=== PATIENT | female | born 1980 | race Caucasian/White ===

== ENCOUNTER 2017-08-20 04:57 | Inpatient (IN) | payer OTHER ==
[~2017-08-20] VITALS: Ht 154.9 cm; Wt 104.3 kg
[2017-08-20] MEDS ORDERED: OXYTOCIN 30 UNIT/NS 500 ML 500 ML IV PRN (04:59)
[2017-08-20] MEDS ORDERED: FAMOTIDINE(*) 20MG/50ML PREMIX 50 ML IVPB PRN (04:59)
[2017-08-20] MEDS ORDERED: ceFAZolin(*) 2GM/D5W 50ML 50 ML IVPB PRN (04:59)
[2017-08-20] MEDS ORDERED: fentaNYL CITR 100 MCG/2 ML AMP IVP PRN (05:00)
[2017-08-20] MEDS ORDERED: METOCLOPRAMIDE 10 MG/2 ML SDV IVP PRN (05:00)
[2017-08-20] MEDS ORDERED: LIDOCAINE 1% LOCAL 300 MG/30ML INJ PRN ×2 (05:00)
[2017-08-20] MEDS ORDERED: MISOPROSTOL 25 MCG CAP PV PRN (05:00)
[2017-08-20] MEDS ORDERED: LIDOCAINE/SOD BICARB 8.4% SYR SC PRN (05:00)
[2017-08-20] MEDS ORDERED: ACETAMINOPHEN 500 MG TAB PO PRN (05:00)
[2017-08-20] MEDS ORDERED: TERBUTALINE SULF 1 MG/ML VIAL SUBQ PRN (05:00)
[2017-08-20 05:40] VITALS: BP 168/87; Ht 154.9 cm; Wt 104.3 kg
[2017-08-20] MEDS ORDERED: PREN-127 PO (06:18)
[2017-08-20] MEDS ORDERED: HYDR200T38 PO (06:18)
[2017-08-20] MEDS ORDERED: PRED-420 PO (06:18)
[2017-08-20] MEDS ORDERED: LABETALOL HCL 20 MG/4 ML SYR IVP PRN (06:30)
[2017-08-20 06:37] LABS: PLATELET COUNT, AUTOMATED 154 K/uL (150-450)
[2017-08-20] MEDS ORDERED: LABETALOL HCL 100 MG/20ML VIAL IVP PRN (06:55)
[2017-08-20] MEDS: LR(*) 1000 ML BAG 1,000 ML IV SCH ×2 (07:04→16:53)
[2017-08-20] MEDS ORDERED: CLINDAMYCIN 900 MG/6 ML 900 MG in NS(*) 0.9% 100 ML BAG 100 ML IVPB ONE (07:20)
[2017-08-20] MEDS ORDERED: ACETAMINOPHEN(*)1000 MG/100 ML 100 ML IVPB SCH (08:00)
[2017-08-20] MEDS ORDERED: MAGNESIUM SUL* 4 GM/100 ML BAG 100 ML IVPB ONE (08:15)
[2017-08-20] MEDS ORDERED: predniSONE 10 MG TAB PO SCH (09:00)
--- NOTE | 2017-08-20 09:02 | History & Physical ---
History of Present Illness Age of Patient: 37 : 2 Para or TPAL: 1001 EDC per LMP: Aug 23, 2017 EDC per U/S: Aug 25, 2017 Estimated Gestational Age: 39.4 Chief Complaint Induction of labor History of Present Illness Pt is a 37 y/o @ 39-4/7 who presents to L&D with a chief complaint of Induction of Labor. Pt reports no headaches or visual changes. Good movement. No bleeding or spotting. Pt reports that she has Rheumatoid Arthritis and take Prednisone 10 mg daily along with Plaquenil. Pt reports that she still has significant joint issues and difficulty moving. 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 Past Medical History: Rheumatoid Arthritis: Prednisone and Plaquenil daily. Allergies: Coded Allergies: Penicillins (Verified Allergy, Severe, ANAPHYLAXIS, 08/20/17) Sulfa (Sulfonamide Antibiotics) (Verified Allergy, Severe, ANAPHYLAXIS, 07/26) aspirin (Verified Allergy, Unknown, UNKNOWN, 08/20/17) Social History: denies X 3. . Med Rec Home Meds Reported Medications Vits W-Ca,Fe,Fa(<1MG) ( VITAMINS) 1 Each Tablet, 1 EACH PO DAILY, TAB 08/20/17 Hydroxychloroquine Sulfate (PLAQUENIL) 200 Mg Tablet, 200 MG PO QDAY 08/20/17 Prednisone 10 Mg Tab (PREDNISONE 10 MG TAB) 10 Mg Tab.ds.pk, 10 MG PO, TAB 08/20/17 Review of Systems All Systems Reviewed/Normal: Yes, Except as Noted Constitutional: No Fever, No Weight Loss, No Weight Gain, No Chills, No Night Sweats, No Other Neurological: No Syncope, No Confusion, No Weakness, No Dizziness, No Slurred Speech, No Other Eyes: No Vision Change, No Loss of Vision, No Photophobia, No Other ENT: No Hearing Loss, No Sinus Congestion, No Sore Throat, No Ear Ache, No Tinnitus, No Other Cardiovascular: No Chest Pain, No Palpitations, No Orthostatic Hypotension, No Other Respiratory: No Shortness of Breath, No Cough, No Wheezing, No Other Gastrointestinal: No Nausea, No Vomiting, No Diarrhea, No Dysphagia, No Constipation, No Early Satiety, No Hematemesis, No Hematochezia, No Melena, No Abdominal Pain, No Other Genitourinary: No Dysuria, No Hematuria, No Urinary Incontinence, No Other Musculoskeletal: No Pain, No Sprain, No Strain, No Impaired Mobility, No Other Psychiatric: No Depression, No Anxiety, No Other Exam General Exam Vital Signs Vital Signs Date Time Temp Pulse Resp B/P (MAP) Pulse Ox O2 Delivery O2 Flow Rate FiO2 08/20/17 05:40 98.1 87 20 168/87 (114) 94 Room Air General Apperance: Alert/Awake/No Acute Distress Neuro: No Gross deficits Eyes: Normal Extraocular Movement & Vison, PERRLA ENT: Normal Neck: No Masses Cardiovascular: Regular Rate and Rhythm Respiratory: No Respiratory Distress, Clear to Auscultation Abdomen: Soft, Non-Tender, Non-Distended, Gravid - Non-Tender : Normal Musculoskeletal: No Weakness/Pain Extremities: No Cyanosis,Clubbing or Edema, Other (pain in the joints) Integumentary: Skin Intact without Lesions or Rash Psychological: Alert & Oriented X3, Appropriate Mood & Affect Cervical Dialation: 1 Cervical Effacement (%): 50 Cervical Consistency: Moderate Cervical Position: Anterior Station: -2 Presentation: Vertex Uterine Contractions(Q min): 15 Uterine Contraction Strength: Moderate UC Resting Tone: Soft Fetus Feeling Movement?: Yes Estimated Weight(grams): 3400 Heart Tones: 130 Heart Tone Variabilty: Moderate FHT Accelerations: 15X15 FHT Decelerations: None FHT Category: I Medical Decision Making Data Points Result Diagram: 08/20/17 0624 08/20/17 0000 Pre-Admit Course Medical Record Review: Yes VTE Prophylasis: Adult Deep Vein Thrombosis/Pulmonary: No Assessment and Plan 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 labetalol as needed to help with BP to keep it under 160/110. Start with Cytotec for IOL. (2) 39 weeks gestation of (3) Rheumatoid arthritis Assessment & Plan: Keep on Prednisone 10 mg daily. Will get Stress dose steroids as needed with labor. (4) Obesity (BMI 35.0-39.9 without comorbidity) (5) Advanced maternal age (AMA) in Problem Qualifiers (1) Preeclampsia, severe: Trimester: third trimester Qualified Codes: O14.13 - Severe pre-eclampsia, third trimester GISELA VICTORIA DO Aug 20, 2017 09:02
[2017-08-20] MEDS ORDERED: OXYTOCIN 30 UNIT/D5LR 500 ML 500 ML IV PRN ×2 (09:05→13:37)
[2017-08-20] MEDS: MAGNESIUM SULF 20 GM/500 ML IV 500 ML IV SCH ×2 (09:34→19:04)
[2017-08-20 13:59] LABS: PLATELET COUNT, AUTOMATED 160 K/uL (150-450)
[2017-08-20] MEDS ORDERED: CALCIUM GLUC 10% 100 MG/ML VL IVP ONE ×2 (14:50→15:15)
[2017-08-20] MEDS ORDERED: CALCIUM GLUC 10% 100 MG/ML VL ONE (14:53)
[2017-08-20] MEDS ORDERED: CALCIUM GLUC 10% 100 MG/ML VL IVP PRN (15:55)
[2017-08-20] MEDS ORDERED: EPIDURAL KEYS XX PRN (16:35)
[2017-08-20] MEDS ORDERED: LIDO/EPI 2% MPF 1:200,000 20ML EPI PRN (16:40)
[2017-08-20] MEDS ORDERED: FENTANYL/ROPIVACAINE 100 ML BAG EPI PRN (16:40)
[2017-08-20] MEDS ORDERED: ePHEDrine 25 MG/5 ML DISP.SYR IVP PRN (16:40)
[2017-08-20] MEDS ORDERED: BUPIVACAINE 0.5% INJ 30ML VIAL EPI PRN (16:40)
[2017-08-20] MEDS ORDERED: BUPIVACAINE 0.25% MPF INJ EPI PRN (16:40)
[2017-08-20] MEDS ORDERED: fentaNYL CITR 100 MCG/2 ML AMP IT PRN (16:40)
[2017-08-20] MEDS ORDERED: LIDOCAINE/PF 2% 200MG/10ML AMP 200 MG/10 ML AMPUL EPI PRN (16:40)
--- NOTE | 2017-08-20 16:49 | Labor Progress Note ---
Labor Subjective Progress Notes Subjective Feeling warm. Hungry. Getting more and more uncomfortable. Pt desires epidural for pain control. No shortness of breath or chest pain. Feeling Movement?: Yes Vaginal Discharge/Fluid: No Bloody Show, No Clear Fluid, No Bloody Fluid, No Green Tinged Fluid, No Dark Green Fluid, No Mucous, No Small Amount, No Moderate Amount, No Large Amount, No Other Labor Pain: Moderate Neurological: No Headache, No Other Eyes: No Visual Disturbances Labor Objective Vital Signs Vital Signs Date Time Temp Pulse Resp B/P (MAP) Pulse Ox O2 Delivery O2 Flow Rate FiO2 08/20/17 05:40 98.1 87 20 168/87 (114) 94 Room Air Cervical Dialation: 2 Cervical Effacement (%): 50 Cervical Consistency: Moderate Cervical Position: Posterior Station: -2 Presentation: Vertex Uterine Contractions(Q min): 2 Uterine Contraction Strength: Moderate UC Resting Tone: Soft Fetus Heart Tones: 135 Heart Tone Variabilty: Moderate FHT Accelerations: Present FHT Decelerations: None FHT Category: I Other Result Diagram: 08/20/17 1345 08/20/17 1345 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 Continue Magnesium Sulfate. Pt has only been treated with labetalol 20 mg IV once. (2) 39 weeks gestation of Assessment & Plan: S/P cytotec 25 mcg PV. Currently on oxytocin 10 mU/min. Desires epidural. Will plan for amniotomy after epidural. (3) Rheumatoid arthritis (4) Obesity (BMI 35.0-39.9 without comorbidity) (5) Advanced maternal age (AMA) in Problem Qualifiers (1) Preeclampsia, severe: Trimester: third trimester Qualified Codes: O14.13 - Severe pre-eclampsia, third trimester ESMECORINEDannielle MARQUEZ Aug 20, 2017 16:49
[2017-08-20] MEDS: ONDANSETRON 4 MG/2 ML VIAL IVP PRN (18:33)
--- NOTE | 2017-08-20 18:45 | Labor Progress Note ---
Labor Subjective Progress Notes Subjective Feeling better post epidural. Significant nausea with vomiting. Pain controlled. Feeling Movement?: Yes Vaginal Discharge/Fluid: Bloody Show, Clear Fluid Labor Pain: Mild Neurological: No Headache, No Other Eyes: No Visual Disturbances Labor Objective Vital Signs Vital Signs Date Time Temp Pulse Resp B/P (MAP) Pulse Ox O2 Delivery O2 Flow Rate FiO2 08/20/17 05:40 98.1 87 20 168/87 (114) 94 Room Air Cervical Dialation: 2 Cervical Effacement (%): 50 Cervical Consistency: Moderate Cervical Position: Mid Station: -2 Presentation: Vertex Uterine Contractions(Q min): 3 Uterine Contraction Strength: Moderate UC Resting Tone: Soft Fetus Heart Tones: 130 Heart Tone Variabilty: Moderate FHT Accelerations: 15X15 FHT Decelerations: Variable FHT Category: II Other Result Diagram: 08/20/17 1345 08/20/17 1345 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 IUPC placed. Will increase oxytocin to adequate contraction pattern. (3) Rheumatoid arthritis (4) Obesity (BMI 35.0-39.9 without comorbidity) (5) Advanced maternal age (AMA) in Problem Qualifiers (1) Preeclampsia, severe: Trimester: third trimester Qualified Codes: O14.13 - Severe pre-eclampsia, third trimester GISELA VICTORIA DO Aug 20, 2017 18:45
--- NOTE | 2017-08-20 19:41 | Anesthesia OB Pre-Anes Eval ---
History of Present Illness Anesthesia Start Date: Aug 20, 2017 Anesthesia Start Time: 17:15 OB Anesthesia Diagnosis: induction - medical, other (Hypertension) Current Complication: obesity Complications: None known EDC: Aug 25, 2017 : 2 Para: 1 Vital Signs: Vital Signs Date Time Temp Pulse Resp B/P (MAP) Pulse Ox O2 Delivery O2 Flow Rate FiO2 08/20/17 05:40 98.1 87 20 168/87 (114) 94 Room Air Pain Ratin Heart Tones: WNL Result Diagram: 08/20/17 1345 08/20/17 1345 Height (Inches): 61.00 Weight (Pounds): 230 BMI Calculated: 43.45 Past Medical History Medical History: obesity, other (Daily Prednisone for RA) Surgical History: other (Foot) Previous Anesthesia: general, epidural Attended Childbirth Classes?: No Hx Anesthesia Reactions: No Hx Family Anesthesia Reaction: No Current Medications: magnesium sulfate, pitocin Home Meds Reported Medications Vits W-Ca,Fe,Fa(<1MG) ( VITAMINS) 1 Each Tablet, 1 EACH PO DAILY, TAB 08/20/17 Hydroxychloroquine Sulfate (PLAQUENIL) 200 Mg Tablet, 200 MG PO QDAY 08/20/17 Prednisone 10 Mg Tab (PREDNISONE 10 MG TAB) 10 Mg Tab.ds.pk, 10 MG PO, TAB 08/20/17 Allergies: Coded Allergies: Penicillins (Verified Allergy, Severe, ANAPHYLAXIS, 08/20/17) Sulfa (Sulfonamide Antibiotics) (Verified Allergy, Severe, ANAPHYLAXIS, 07/26) aspirin (Verified Allergy, Unknown, UNKNOWN, 08/20/17) Anesthesia OB ROS Neurological: No migraines/headaches, No seizures, No neuropathy ENT: Denies Tooth caps, Denies Loose teeth, Denies Chipped teeth, Denies Dentures, Denies Bridges, Denies Retainers, Denies Veneers, Denies Implants, Denies Tongue ring Pulmonary: No asthma, No smoker (pks/day/yrs), other (audible respirations) Airway Class: lll Cardiovascular ROS: edema (ankles and hands), No arrhythmia, No other GI ROS: clear liquids Last Solids Date: Aug 20, 2017 Last Solids Time: 09:00 ROS: No Herpes, No STD(s), No Liver Disease, No Renal Disease Endocrine ROS: No diabetes, No gestational diabetes, No thyroid disorder, other (R. Arthritis) Musculoskeletal ROS: No low back pain, No low back injury, No scoliosis ASA Classification: 3 Assessment and Plan Anesthesia Plan: CSE Assessment Past Medical, Surgical, Family and Obstetric Histories reviewed. Please see ACOG chart. Reviewed with pt. her previous epidural experience. Pt. remember very little. Epidural anesthesia risks, complications and benefits explained to patient's satisfaction for labor and vaginal delivery and/or section. Also, discussed General anesthesia risks and benefits explained to patient's satisfaction. brought food into room, offered grapes to pt. Repeated need for only clear liquids, "solid food can be fatal if aspirated during C/Section". Questions invited, none asked. TREVOR IBRCH CRNA Aug 20, 2017 19:41
--- NOTE | 2017-08-20 19:46 | Procedure Note ---
Anesthetic Placement Note Anesthesia Plan: CSE Permit for Anesthesia Signed: Yes Anesthesia Technique: Patient Sitting Anesthesia Prep: Chlorhexidine Interspace: L 3-4 Local Anesthetic: 1% Lidocaine, 25 Gauge Needle Amount Local - cc's: 2 Anesthesia Needle: 17g Touhy/Schliff Anesthesia Attempts: 1 Loss of Resistance: Air Depth of LOS (cm): 8 Epidural Needle Placement: No CSF, No Blood, No Parasthesia Intrathecal Needle: 27 Gauge Pencan Cerebral Spinal Fluid: Yes, Clear Catheter Insertion (cm): 10 Catheter Type: Curtis - Spring Wound Epidural Dressing: Tegaderm, Tape, Adhesive [place] Anesthesia Tray: Lot Number ([id number]), Expiration Date (2018-05-08), Reference Number ([id number]) Comment: Unable to feel any landmarks, even iliac crests. Asked pt. to locate and she also was unable. Anesthesia Medications: Intrathecal Dose: mcg Fentanyl (15), mg Marcaine MPF (1.75), Time (1737) Epidural Test Dose: 1.5 Lido/Epi (1:200,000), Time (1800), Negative Epidural Loading Dose: 0.2% Ropivicaine, With Fentanyl 2mcg/ml, Dose - ml (5), Time (1802) Epidural Infusion: 0.2% Ropivicaine, With Fentanyl 2mcg/ml, Start Time: (1802) Epidural Pump Setting: Bolus Dose - mL (5), Lockout - Minutes (20), Maintenance Rate - mL/hr (4), Maximum per Hour - mL (19) Complications: None Comment: Pt. tolerated procedure extremely well. No contractions noted while sitting. Vital signs stable. Patient comfortable and condition stable. TREVOR BIRCH CRNA Aug 20, 2017 19:46
--- NOTE | 2017-08-20 19:52 | Anesthesia Progress Note ---
Progress/Maintenance Anesthesia Note Date: Aug 20, 2017 Anesthesia Note Time: 18:00 Pain Intensity: 0 Pump: On Pump Rate (ML/HR): 4 Sensory Level: T-12 Motor Level: Bending Knees-Bilateral Dilatation: 2 Position: Left, Tilt Assessment and Plan Assessment Pt. with nausea and emesis of large amount solid food. Bp slightly lower, depends of which arm bp cuff is on. Pt. denies any feeling of lightheadedness or dizziness. TREVOR BIRCH CRNA Aug 20, 2017 19:52
[2017-08-20 22:16] LABS: PLATELET COUNT, AUTOMATED 141 K/uL (150-450)
--- NOTE | 2017-08-20 22:29 | Anesthesia Progress Note ---
Progress/Maintenance Anesthesia Note Date: Aug 20, 2017 Anesthesia Note Time: 22:15 Pain Intensity: 0 Pump: On Pump Rate (ML/HR): 4 Sensory Level: T-12 Motor Level: Bending Knees-Bilateral Dilatation: 3 Position: Left, Tilt Assessment and Plan Assessment Assisted pt. to turn onto left side. Pt. was able to help with moving. She does not notice contractions. TREVOR BIRCH CRNA Aug 20, 2017 22:29
[2017-08-21] VITALS (19 sets, daily range): BP systolic 109–163; BP diastolic 54–97
--- NOTE | 2017-08-21 02:15 | Anesthesia Progress Note ---
Progress/Maintenance Anesthesia Note Date: Aug 21, 2017 Anesthesia Note Time: 02:10 Pain Intensity: 7 Pump: On Pump Rate (ML/HR): 4 Sensory Level: T-12 Motor Level: Bending Knees-Bilateral Dilatation: 3 Position: Left, Tilt Drug Bolus: 0.2% Ropivicaine, Fentanyl 2mcg/ml, Other (Fentenyl 50 mcgs) Assessment and Plan Assessment Bolus given as pt. states she feels contractions in "front lower abdomen". Able to move legs well. Pitocin gtt increasing and pt. noticing stronger contractions. TREVOR BIRCH CRNA Aug 21, 2017 02:15
[2017-08-21] MEDS: MAGNESIUM SULF 20 GM/500 ML IV 500 ML IV SCH ×2 (05:10→14:58)
--- NOTE | 2017-08-21 05:21 | Anesthesia Progress Note ---
Progress/Maintenance Anesthesia Note Date: Aug 21, 2017 Anesthesia Note Time: 05:15 Pain Intensity: 7 Pump: On Pump Rate (ML/HR): 6 Sensory Level: T-12 Motor Level: Bending Knees-Bilateral Dilatation: 4 Position: Left, Tilt Drug Bolus: 0.5% Marcaine (3 m;) Assessment and Plan Assessment Bolus per pump plus additional 0.5% Marcaine. Rate of pump increased to 6 ml/ hr. Pt. has received relief from previous bolus, but eventually, discomfort returns. TREVOR BIRCH CRNA Aug 21, 2017 05:21
[2017-08-21 06:43] LABS: PLATELET COUNT, AUTOMATED 135 K/uL (150-450)
[2017-08-21] MEDS ORDERED: ACETAMINOPHEN(*)1000 MG/100 ML 100 ML IVPB ONE (08:00)
[2017-08-21] MEDS: ONDANSETRON 4 MG/2 ML VIAL IVP PRN (08:28)
[2017-08-21] MEDS ORDERED: MORPHINE PF 5 MG/10 ML AMP ONE (08:35)
--- NOTE | 2017-08-21 08:46 | Labor Progress Note ---
Labor Subjective Progress Notes Subjective Pain getting worse. Pt report she is getting tired and doesn't want to keep going. Frustrated with how long this is taking. Feeling Movement?: Yes Vaginal Discharge/Fluid: Bloody Show, Clear Fluid Labor Pain: Moderate Neurological: No Headache, No Other Eyes: No Visual Disturbances Labor Objective Vital Signs Vital Signs Date Time Temp Pulse Resp B/P (MAP) Pulse Ox O2 Delivery O2 Flow Rate FiO2 08/20/17 05:40 98.1 87 20 168/87 (114) 94 Room Air Vaginal Discharge/Fluid?: Bloody Show Cervical Dialation: 4 Cervical Effacement (%): 70 Cervical Consistency: Soft Cervical Position: Mid Station: -3 Presentation: Vertex Uterine Contractions(Q min): 5 Uterine Contraction Strength: Moderate UC Resting Tone: Soft Fetus Heart Tones: 130 Heart Tone Variabilty: Moderate FHT Accelerations: 15X15 FHT Decelerations: None Other Result Diagram: 08/21/1762208/21/17622 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 Consents signed. Pt to go to OR. Will plan for 24 hours magnesium recovery. 100 mg Hydrocortisone or Solumedrol for stress dose at surgery. (2) 39 weeks gestation of (3) Rheumatoid arthritis (4) Obesity (BMI 35.0-39.9 without comorbidity) (5) Advanced maternal age (AMA) in Problem Qualifiers (1) Preeclampsia, severe: Trimester: third trimester Qualified Codes: O14.13 - Severe pre-eclampsia, third trimester GISELA VICTORIA DO Aug 21, 2017 08:45
[2017-08-21] MEDS: LR(*) 1000 ML BAG 1,000 ML IV SCH (08:50)
[2017-08-21] MEDS ORDERED: CITRIC ACID/SOD CITRATE 30 ML ONE (09:12)
--- NOTE | 2017-08-21 09:25 | Anesthesia OB Pre-Anes Eval ---
History of Present Illness OB Anesthesia Diagnosis: gestational hypertension, induction - medical Current Complication: gestational hypertention, obesity EDC: Aug 25, 2017 : 2 Para: 1 Pain Ratin Result Diagram: 08/20/17 0624 08/20/17 0000 Height (Inches): 61.00 Weight (Pounds): 230 BMI Calculated: 43.45 Past Medical History Medical History: obesity, other (Rheumatoid Arthritis) Surgical History: noncontributory Previous Anesthesia: general Attended Childbirth Classes?: No Hx Anesthesia Reactions: No Hx Family Anesthesia Reaction: No Current Medications: magnesium sulfate Home Meds Reported Medications Vits W-Ca,Fe,Fa(<1MG) ( VITAMINS) 1 Each Tablet, 1 EACH PO DAILY, TAB 08/20/17 Hydroxychloroquine Sulfate (PLAQUENIL) 200 Mg Tablet, 200 MG PO QDAY 08/20/17 Prednisone 10 Mg Tab (PREDNISONE 10 MG TAB) 10 Mg Tab.ds.pk, 10 MG PO, TAB 08/20/17 Allergies: Coded Allergies: Penicillins (Verified Allergy, Severe, ANAPHYLAXIS, 08/20/17) Sulfa (Sulfonamide Antibiotics) (Verified Allergy, Severe, ANAPHYLAXIS, 07/26) aspirin (Verified Allergy, Unknown, UNKNOWN, 08/20/17) Anesthesia OB ROS ENT: Chipped teeth, Other (poor dentition) Pulmonary: other (former smoker, quit 5 years ago) Airway Class: ll GI ROS: clear liquids, ice chips Last Solids Date: Aug 20, 2017 Last Solids Time: 09:00 ASA Classification: 2 Assessment and Plan Anesthesia Plan: AISHA KERN CRNA Aug 20, 2017 11:29
[2017-08-21] MEDS ORDERED: fentaNYL CITR 100 MCG/2 ML AMP ONE (09:44)
[2017-08-21] MEDS ORDERED: OXYTOCIN 10 UNIT/ML SDV ONE ×4 (10:43)
[2017-08-21] MEDS ORDERED: ePHEDrine 25 MG/5 ML DISP.SYR IVP ONE (10:43)
[2017-08-21] MEDS ORDERED: PHENYLEPHRINE/NS/PF 0.4MG/10ML ONE (10:43)
[2017-08-21] MEDS ORDERED: ZOLPIDEM TARTRATE 5 MG TAB PO PRN (10:45)
[2017-08-21] MEDS ORDERED: LOPERAMIDE HCL 2 MG CAP PO ONE ×2 (10:45→20:55)
[2017-08-21] MEDS ORDERED: OXYTOCIN 30 UNIT/D5LR 500 ML 500 ML IV PRN (10:45)
[2017-08-21] MEDS ORDERED: ONDANSETRON 4 MG/2 ML VIAL IV PRN (10:45)
[2017-08-21] MEDS ORDERED: DLR(*) 1000 ML BAG 1,000 ML IV PRN (10:45)
[2017-08-21] MEDS ORDERED: ACETAMINOPHEN 325 MG TAB PO PRN (10:45)
[2017-08-21] MEDS ORDERED: LANOLIN OINT 7 GM TUBE TP PRN (10:45)
[2017-08-21] MEDS ORDERED: CARBOPROST TROMETHAM 250MCG/ML IM ONLY ONE (10:49)
--- NOTE | 2017-08-21 11:22 | Post Operative Note ---
Operative Note - CORN CUTTER OPERATOR Operative Day Date: Aug 21, 2017 Time: 10:48 Physicians Surgeon: Gisela Ellington DO Dry Box Tender: Jacinto Paniagua MD Anesthesia: Epidural Diagnosis Pre-Op Diagnosis: 37 y/o @ 39-5/7 weeks gestation IOL PreEclampsia with severe features Obese Arrest of Dilation RA Post-Op Diagnosis: same Procedure Findings: live born female at 0949 with apgars of 8/9 weighing 3274 gm 7#3oz. 3vc/ip. Normal tubes and ovaries bilaterally. Procedure(s): 1 LTCS Specimen Removed:(Maybe N/A): None Complications: None known Fluids Fluids: 1000 cc LR u/o=50 cc Estimated Blood Loss: 800 Dictated Date OP Note Dictated: Aug 21, 2017 Time OP Note Dictated: 10:51 GISELA ELLINGTON DO Aug 21, 2017 11:22
--- NOTE | 2017-08-21 11:29 | Anesthesia Progress Note ---
Progress/Maintenance Anesthesia Note Date: Aug 21, 2017 Anesthesia Note Time: 09:00 Pain Intensity: 5 Pump: Off Dilatation: 4 Position: Right, Tilt Drug Bolus: Other Assessment and Plan Assessment Dosing for E C/Section with 2% Lidocaine with Epi and Fentenyl 35 mcgs. Explained use of astromorph per epidural for post op pain management. Questions invited, none asked. Plan: to leave epidural catheter in place until lab worked obtained after C/Section. Anesthesia Stop Day: Aug 21, 2017 Anesthesia Stop Time: 10:45 TREVOR BIRCH CRNA Aug 21, 2017 11:29
[2017-08-21] MEDS ORDERED: diphenhydrAMINE 25 MG CAP PO PRN (11:30)
[2017-08-21] MEDS ORDERED: NALOXONE HCL 0.4 MG/ML VIAL IV PRN (11:30)
[2017-08-21] MEDS ORDERED: NALBUPHINE HCL 10 MG/ML AMP IV PRN (11:30)
[2017-08-21] MEDS ORDERED: FAMOTIDINE(*) 20MG/50ML PREMIX 50 ML IVPB ONE (12:05)
[2017-08-21] MEDS ORDERED: ONDANSETRON 4 MG/2 ML VIAL ONE (12:05)
[2017-08-21] MEDS: KETOROLAC 30 MG/ML VIAL IVP SCH ×2 (12:50→19:54)
--- NOTE | 2017-08-21 13:38 | OPERATIVE REPORT 1 ---
EVENT DATE: August 21, 2017 SURGEON: Haile Ellington DO ANESTHESIA: Epidural, Vida Jaime CRNA MULTIPLE SPINDLE ROUTER OPERATOR: Jacinto Paniagua MD PREOPERATIVE DIAGNOSES 1. A 37-year-old 2, para 1, at 39-5/7 weeks' gestation. 2. Induction of labor. 3. Preeclampsia with severe features. 4. Obese. 5. Arrest of dilation. POSTOPERATIVE DIAGNOSES 1. A 37-year-old 2, para 1, at 39-5/7 weeks' gestation. 2. Induction of labor. 3. Preeclampsia with severe features. 4. Obese. 5. Arrest of dilation. PROCEDURE PERFORMED Primary low transverse section. FINDINGS Live-born female at 0949 with Apgars of 8 and 9, weighing 3274 g, 7 pounds 3 ounces. Three-vessel cord, intact placenta. Normal tubes and ovaries bilaterally. ESTIMATED BLOOD LOSS 800 ML INTRAVENOUS FLUIDS Lactated Ringer's 1000 mL IV. URINE OUTPUT 50 mL PATHOLOGY None. COMPLICATIONS None known. CONDITION Stable times two. Mother and to recovery and then back to the floor for the remainder of her magnesium and recovery. LABOR SUMMARY The patient is a 37-year-old 2, para 1, at 39-5/7 weeks' gestation who presented to labor and delivery for induction of labor. The patient was noted to be 1 cm. She received 25 mcg of Cytotec per vagina and began ilir irregularly. She then was started on oxytocin. After oxytocin, the patient had spontaneous rupture of membranes and was noted to be 2 cm, 50% effaced, and -3 station. She did receive an epidural. An IUPC was placed. The patient was noted to have multiple high blood pressures, one requiring labetalol 20 mg, and a urine protein/creatinine ratio that was 0.6. The patient was started on magnesium with the diagnosis of preeclampsia with severe features. She continued to receive oxytocin for induction of labor. She continued to progress very slowly and made it to 4 to 4.[address] way for approximately six hours. The patient was noted to have an adequate contraction pattern with oxytocin, but never made any further dilation or any further descent into the pelvis. After counseling, the patient was consented for a primary low transverse section secondary to arrest of dilation and preeclampsia. DESCRIPTION OF PROCEDURE The patient was taken to the operating room where she was placed in the dorsal supine position. Her epidural anesthesia was rebolused. With epidural anesthesia rebolused, she was prepped and draped in the usual sterile manner. A Pfannenstiel skin incision was then made with a scalpel. This was carried sharply down to the layer of the fascia. Once the fascia was visualized, it was notched bilaterally and extended in a curvilinear manner with curved Peña scissors. The rectus muscles were at midline. The peritoneum was grasped with the hemostats and entered sharply with Metzenbaum scissors. With the peritoneum entered, gentle stretching was performed. A bladder blade was placed. A bladder flap was created with the Metzenbaum scissors. The bladder blade was replaced. A low transverse incision was carried down to the uterus with a 10 blade scalpel. This was carried sharply down to the level of the amnion. Once the amnion was noted, the surgeon's finger was placed through the incision and extended in a curvilinear manner. The surgeon's hand was placed through the hysterotomy, and its head was grasped, raised, and brought through the level of the hysterotomy. With gentle fundal pressure, the infant's head delivered in a sterile manner. A vigorous female was born. At this point, the mouth and nose were bulb suctioned. The cord was clamped times two and cut. The infant was shown to her mother and handed to awaiting surfacing machine operator. With the awaiting surfacing machine operator taking the baby, cord blood gases were obtained, and the placenta delivered. With the placenta delivered, a wet laparotomy sponge was wrapped around the uterus. A dry laparotomy sponge was used to clean the uterus of all clot and debris. The angles of the incision were visualized. The hysterotomy was closed with a 0 Monocryl in a running manner. An imbrication stitch was used to help with hemostasis. At this point , the posterior gutter was cleaned of all clot and debris. The uterus was then placed back inside the abdomen. The hysterotomy was inspected and found to be hemostatic. The right and left gutters were then cleaned of all clot and debris. The peritoneum was closed in a running manner with a 2-0 Monocryl. The fascia was then closed with a 0 looped PDS in a running manner. Copious amounts of irrigation were used in the subcutaneous tissue. The subcutaneous tissue was greater than 2 cm thick, so it was closed with a 3-0 Monocryl. The skin was then closed with 4-0 Monocryl in a subcuticular manner. Dermabond was placed over the incision. The patient was then cleaned and transferred to the recovery room in stable condition. She will remain on magnesium for approximately 24 hours post delivery. LORNA
[2017-08-21] MEDS ORDERED: CALCIUM GLUC 10% 100 MG/ML VL IVP ONE (14:40)
[2017-08-21] MEDS ORDERED: CLINDAMYCIN(*) 900 MG/NS 50 ML 50 ML IVPB ONE (15:00)
[2017-08-21] MEDS ORDERED: ONDANSETRON 4 MG/2 ML VIAL IVP PRN (18:05)
[2017-08-21] MEDS: PROMETHAZINE 25 MG/ML 1 ML AMP IVP PRN (20:10)
[2017-08-21] MEDS: FAMOTIDINE 20 MG TAB PO SCH (21:07)
[2017-08-21] MEDS: DOCUSATE CALCIUM 240 MG CAP PO SCH (21:08)
[2017-08-22] VITALS (10 sets, daily range): BP systolic 122–156; BP diastolic 73–90
[2017-08-22] MEDS: KETOROLAC 30 MG/ML VIAL IVP SCH
[2017-08-22] MEDS: MAGNESIUM SULF 20 GM/500 ML IV 500 ML IV SCH (01:21)
[2017-08-22] MEDS: PROMETHAZINE 25 MG/ML 1 ML AMP IVP PRN (02:35)
[2017-08-22] MEDS: IBUPROFEN 800 MG TAB PO SCH ×3 (05:47→21:39)
[2017-08-22 07:19] LABS: PLATELET COUNT, AUTOMATED 148 K/uL (150-450)
[2017-08-22] MEDS: predniSONE 10 MG TAB PO SCH (09:19)
[2017-08-22] MEDS: FAMOTIDINE 20 MG TAB PO SCH ×2 (09:19→21:05)
[2017-08-22] MEDS: DOCUSATE CALCIUM 240 MG CAP PO SCH ×2 (09:19→21:05)
--- NOTE | 2017-08-22 09:45 | Anesthesia Post Eval Note ---
Anesthesia Post Eval Note Vital Signs Date Time Temp Pulse Resp B/P (MAP) Pulse Ox O2 Delivery O2 Flow Rate FiO2 08/22/17 07:00 Nasal Cannula 2.0 08/22/17 06:59 97.5 84 18 128/79 (95) 94 Pt able to participate in Eval: Yes Cardiovascular Status: Satisfactory Respiratory Status: Satisfactory Pain Managment: Satisfactory PO Nausea/Vomiting: Satisfactory Temperature Management: Satisfactory Mental Status: Satisfactory, Alert, Oriented X3 Post-Op Hydration Status: Satisfactory, Tolerating PO Well, Voiding w/o Difficulty Anesthesia Type: CSE Anesthesia Tolerance: Epidural catheter removed intact. LP site looks good. Assisted pt. to ambulate to chair. Encouraged use of incentive spirometer. Lab work ok for platelets, H & H low. TREVOR BIRCH CRNA Aug 22, 2017 09:45
--- NOTE | 2017-08-22 10:28 | OB/GYN Progress Note ---
OB Subjective Progress Notes Subjective Pt doing much better now that she is off of magnesium. Pt reports that she doesn't have any headaches or visual changes. No longer feeling warm or flushed. Ambulatory in room only. Still has moreno catheter. GI: NEG Nausea, NEG Vomiting, NEG Flatus, NEG Bowel Movement : Vaginal Bleeding, Moderate Pain: Mild Neurological: No Headache, No Other Eyes: No Visual Disturbances OB Objective Physical Exam Vital Signs Date Time Temp Pulse Resp B/P (MAP) Pulse Ox O2 Delivery O2 Flow Rate FiO2 08/22/17 07:00 Nasal Cannula 2.0 08/22/17 06:59 97.5 84 18 128/79 (95) 94 Intake and Output 08/23/17 07:00 Intake Total 580 ml Output Total 675 ml Balance -95 ml Intake Oral 580 ml Output Urine Total 675 ml General Appearance: Alert/Awake/No Acute Distress Neurological: No Gross deficits Eyes: Normal Extraocular Movement & Vison, PERRLA ENT: Normal Neck: No Masses Cardiovascular: Normal Rhythm & Peripheral Pulses, Regular Rate and Rhythm Respiratory: No Respiratory Distress, Clear to Auscultation Incision: Clean, Dry, Intact, Dermabond Extremities: No Cyanosis,Clubbing or Edema, Other (pain in the joints) Integumentary: Skin Intact without Lesions or Rash Psychological: Alert & Oriented X3, Appropriate Mood & Affect Result Diagram: 08/22/1764708/22/17647 Assessment and Plan Problems: (1) Preeclampsia, severe Status: Acute Assessment & Plan: S/P 24 hour magnesium recovery. Pt only has required 1 dose of 20 mg labetalol for blood pressures. Will discontinue Moreno catheter today by noon. Pt starting to diurese. Pt to increase ambulation today. If patient continues to improve will plan for discharge tomorrow. Pt hasn't required any post operative blood pressure medications, if this remains pt will be discharged with out BP medications. (2) 39 weeks gestation of (3) Rheumatoid arthritis (4) Obesity (BMI 35.0-39.9 without comorbidity) (5) Advanced maternal age (AMA) in Problem Qualifiers (1) Preeclampsia, severe: Trimester: third trimester Qualified Codes: O14.13 - Severe pre-eclampsia, third trimester GISELA VICTORIA DO Aug 22, 2017 10:28
[2017-08-22] MEDS: SIMETHICONE 80 MG CHEW CHEW PRN (21:39)
[2017-08-23 04:00] VITALS: BP 158/98
[2017-08-23] MEDS: SIMETHICONE 80 MG CHEW CHEW PRN (04:01)
[2017-08-23 07:07] VITALS: BP 148/92
[2017-08-23] MEDS: IBUPROFEN 800 MG TAB PO SCH (07:30)
--- NOTE | 2017-08-23 07:47 | OB/GYN Progress Note ---
OB Subjective Progress Notes Subjective Doing good this morning. Reports no headaches or visual changes. Ambulatory with minimal pain. Tolerating regular diet. Voiding with out an problems. GI: NEG Nausea, NEG Vomiting, NEG Flatus, NEG Bowel Movement : Voiding Well, Vaginal Bleeding, Moderate Pain: Mild Neurological: No Headache, No Other Eyes: No Visual Disturbances OB Objective Physical Exam Vital Signs Date Time Temp Pulse Resp B/P (MAP) Pulse Ox O2 Delivery O2 Flow Rate FiO2 08/23/17 04:00 97.7 90 20 158/98 (118) Room Air 08/22/17 23:45 90 08/22/17 07:00 2.0 General Appearance: Alert/Awake/No Acute Distress Neurological: No Gross deficits Eyes: Normal Extraocular Movement & Vison, PERRLA ENT: Normal Neck: No Masses Cardiovascular: Normal Rhythm & Peripheral Pulses, Regular Rate and Rhythm Respiratory: No Respiratory Distress, Clear to Auscultation Incision: Clean, Dry, Intact, Dermabond Extremities: No Cyanosis,Clubbing or Edema, Other (pain in the joints) Integumentary: Skin Intact without Lesions or Rash Psychological: Alert & Oriented X3, Appropriate Mood & Affect Result Diagram: 08/22/1748 08/22/1748 Assessment and Plan 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 Follow up in the office for a blood pressure check. (2) 39 weeks gestation of (3) Rheumatoid arthritis (4) Obesity (BMI 35.0-39.9 without comorbidity) (5) Advanced maternal age (AMA) in Problem Qualifiers (1) Preeclampsia, severe: Trimester: third trimester Qualified Codes: O14.13 - Severe pre-eclampsia, third trimester GISELA VICTORIA DO Aug 23, 2017 07:47
[2017-08-23] MEDS ORDERED: PER PO (07:49)
[2017-08-23] MEDS ORDERED: IBUP800T37 PO (07:49)
--- NOTE | 2017-08-23 07:55 | OB/GYN Discharge Summary ---
Discharge Summary Reason for Hosp/Final Diag: (1) Preeclampsia, severe Status: Acute Hospital Course & Plan: Presented to Labor for IOL. Pt was noted to have elevated BP greater then 160/90. Pt has an elevated protein/creatinine ratio. Pt was started on Magnesium for seizure prophylaxis. Pt was started on induction medications and progressed to 4-5 cm but failed to get any further. Pt proceeded with 1LTCS with out any complications. Pt remained on magnesium for 24 hours post delivery. Pt remained in the hospital for 48 hours post delivery. (2) 39 weeks gestation of (3) Rheumatoid arthritis (4) Obesity (BMI 35.0-39.9 without comorbidity) (5) Advanced maternal age (AMA) in [place] Vital Signs Vital Signs Date Time Temp Pulse Resp B/P (MAP) Pulse Ox O2 Delivery O2 Flow Rate FiO2 08/23/17 04:00 97.7 90 20 158/98 (118) Room Air 08/22/17 23:45 90 08/22/17 07:00 2.0 Weight (Pounds): 230 Result Diagram: 08/22/1748 08/22/17647 Condition: Improved Home Meds Active Scripts Oxycodone/Acetaminophen (OXYCODONE/ACETAMINOPHEN 5MG/325 MG) 5 Mg/325 Mg Tab, 1- 2 TAB PO Q4H Y for PAIN, #40 TAB 0 Refills Prov:GISELA VICTORIA DO 08/23/17 Ibuprofen (IBUPROFEN) 800 Mg Tablet, 800 MG PO Q8H@0600,1400,2200, #30 TAB 0 Refills Prov:GISELA VICTORIA DO 08/23/17 Reported Medications Vits W-Ca,Fe,Fa(<1MG) ( VITAMINS) 1 Each Tablet, 1 EACH PO DAILY, TAB 08/20/17 Hydroxychloroquine Sulfate (PLAQUENIL) 200 Mg Tablet, 200 MG PO QDAY 08/20/17 Prednisone 10 Mg Tab (PREDNISONE 10 MG TAB) 10 Mg Tab.ds.pk, 10 MG PO, TAB 08/20/17 [facility] [phone], Dr. Victoria [phone] Follow up in: 2 wks PO Discharge Diet: As Tolerates, Increase Fluid Intake Discharge Activity: As Tolerates, Pelvic Rest Problem Qualifiers (1) Preeclampsia, severe: Trimester: third trimester Qualified Codes: O14.13 - Severe pre-eclampsia, third trimester GISELA VICTORIA DO Aug 23, 2017 07:54
[2017-08-23] MEDS: FAMOTIDINE 20 MG TAB PO SCH (09:48)
[2017-08-23] MEDS: DOCUSATE CALCIUM 240 MG CAP PO SCH (09:48)
[2017-08-23] MEDS: predniSONE 10 MG TAB PO SCH (09:49)
[2017-08-23] MEDS ORDERED: MEASLES,MUMP,RUBELLA VAC 0.5ML SUBQ ONE (10:45)
[2017-08-23] MEDS ORDERED: INFLUENZA VIRUS VAC 0.5 ML SYR IM ONLY ONE (10:45)
[2017-08-23] MEDS ORDERED: DIPHTH/TETANUS/ACEL. PERTUSSIS IM ONLY ONE (10:45)
[2017-08-23] MEDS ORDERED: METOCLOPRAMIDE 10 MG/2 ML SDV ONE (19:55)
== END 2017-08-23 11:50 | disposition home or self-care (01) | DRG 765 ==
LOC: OB 04:57
PROVIDERS: ADMIT Obstetrics & Gynecology; ATTEND Obstetrics & Gynecology
PROC: 10H00YZ Insertion of Other Device into Products of Conception, Open Approach (ICD-10-PCS; 2017-08-20)
PROC: 4A1H74Z Monitoring of Products of Conception, Cardiac Electrical Activity, Via Natural or Artificial Opening (ICD-10-PCS; 2017-08-20)
PROC: 3E033VJ Introduction of Other Hormone into Peripheral Vein, Percutaneous Approach (ICD-10-PCS; 2017-08-20)
PROC: 10D00Z1 Extraction of Products of Conception, Low, Open Approach (ICD-10-PCS; principal; 2017-08-21 09:30)
DX: O14.14 Severe pre-eclampsia complicating childbirth (principal); Z68.41 Body mass index [BMI] 40.0-44.9, adult; O99.214 Obesity complicating childbirth; O75.89 Other specified complications of labor and delivery; O62.1 Secondary uterine inertia; E66.9 Obesity, unspecified; M06.9 Rheumatoid arthritis, unspecified; Z37.0 Single live birth; Z3A.39 39 weeks gestation of pregnancy; Z88.0 Allergy status to penicillin; Z88.2 Allergy status to sulfonamides; Z88.8 Allergy status to other drugs, medicaments and biological substances
CPT/HCPCS: 36415; 81001; 82040; 82247; 82310; 82374; 82435; 82565; 82570; 82947; 83615; 84075; 84132; 84155; 84156; 84295; 84450; 84460; 84520; 84550; 85025; 86850; 86900; 86901; C1726; J0131; J1885; J2270; J2370; J2405; J2550; J2590; J2765; J3010; J3475; J3490; J7050; J7120; J7512; S0020